=== PATIENT | female | born 1940 ===

== ENCOUNTER → 2019-01-03 | Outpatient (CLI) | payer OTHER, BC | LOC: SEN 10:03 | DX: Z09 Encounter for follow-up examination after completed treatment for conditions other than malignant neoplasm (principal); E78.9 Disorder of lipoprotein metabolism, unspecified; J30.2 Other seasonal allergic rhinitis; I87.2 Venous insufficiency (chronic) (peripheral); R60.9 Edema, unspecified; M81.0 Age-related osteoporosis without current pathological fracture; E55.9 Vitamin D deficiency, unspecified; F32.9 Major depressive disorder, single episode, unspecified ==

== ENCOUNTER → 2019-01-31 | Outpatient (CLI) | payer OTHER, BC | LOC: SEN 08:32 | DX: Z09 Encounter for follow-up examination after completed treatment for conditions other than malignant neoplasm (principal); M81.0 Age-related osteoporosis without current pathological fracture; E55.9 Vitamin D deficiency, unspecified ==